=== PATIENT | female | born 1990 | race African-American/Black ===

== ENCOUNTER → 2016-05-07 | Outpatient (CLI) | payer BC, OTHER ==
[~2016-05-07] MED LIST: AMOXICILLIN875 MG PO; BENADRYL ALLERG25 MG PO; DENIES ANY MEDS; EPIPEN0.3 MG/0.3 IM; FLEXERIL PO; IBUPROFEN 600600 M1 PO; IBUPROFEN 800800 MG PO; KEFLEX500 MG PO; METHOCARBAMOL500 M2 PO; NOHOMEMEDICATIONS; NORCO 5-325 TA1 EACH PO; NORFLEX100 MG PO; PEPCID40 MG PO; PHENERGAN 25 MG25 M1 PO; PREDNISONE 20 M20 MG PO; PROTONIX40 MG PO; TRAMADOL 50 MG50 MG PO; ULTRAM 50MG TAB50 MG PO; ZOFRAN ODT4 MG
== END ==
LOC: RAD 13:49
DX: M41.84 Other forms of scoliosis, thoracic region (principal); M54.5 Low back pain

== ENCOUNTER → 2016-05-20 | Outpatient (CLI) | payer BC, OTHER | LOC: MRI 11:09 | DX: M51.27 Other intervertebral disc displacement, lumbosacral region (principal); M54.2 Cervicalgia ==

== ENCOUNTER 2016-08-03 11:39 | Emergency (ER) | payer BC, OTHER ==
[~2016-08-03] VITALS: Ht 175.3 cm; Wt 65.8 kg
[2016-08-03] MEDS ORDERED: NORFLEX100 MG PO (14:08)
[2016-08-03] MEDS ORDERED: MEDROL DOSPAK21 TAB PO (14:26)
[2016-08-03 14:30] VITALS: BP 107/69
== END 2016-08-03 14:08 | disposition home or self-care (01) ==
LOC: ER 11:39
DX: S39.012A Strain of muscle, fascia and tendon of lower back, initial encounter (principal); F17.210 Nicotine dependence, cigarettes, uncomplicated; F10.99 Alcohol use, unspecified with unspecified alcohol-induced disorder; Z87.442 Personal history of urinary calculi; Z88.6 Allergy status to analgesic agent; Z88.1 Allergy status to other antibiotic agents; V43.03XA Car driver injured in collision with pick-up truck in nontraffic accident, initial encounter; Y93.89 Activity, other specified; Y92.481 Parking lot as the place of occurrence of the external cause; Y99.8 Other external cause status

== ENCOUNTER 2019-02-06 15:35 | Emergency (ER) | payer OTHER ==
[~2019-02-06] VITALS: Ht 175.3 cm; Wt 65.8 kg
[~2019-02-06 15:35] MED LIST changes: +MEDROL DOSPAK21 TAB PO
[2019-02-06 17:16] LABS: HEMATOCRIT 37.7 % (37.0-47.0); HEMOGLOBIN 12.1 gm/dL (12.0-15.0); MCH 28.9 pg (26.0-34.0); MCHC 32.1 g/dL (28.0-37.0); RBC 4.2 mil/uL (4.20-5.00); RDW 13.8 % (10.5-14.5); WBC 6.7 thou/uL (4.0-11.0)
[2019-02-06] MEDS ORDERED: REGLAN 5 MG TAB5 MG PO (18:06)
[2019-02-06 18:18] VITALS: BP 102/54
== END 2019-02-06 18:18 | disposition home or self-care (01) ==
LOC: ER 15:35
PROVIDERS: Emergency Medicine
DX: O26.891 Other specified pregnancy related conditions, first trimester (principal); R10.31 Right lower quadrant pain; F17.210 Nicotine dependence, cigarettes, uncomplicated; Z3A.01 Less than 8 weeks gestation of pregnancy; Z87.442 Personal history of urinary calculi; Z88.6 Allergy status to analgesic agent; Z88.8 Allergy status to other drugs, medicaments and biological substances

== ENCOUNTER → 2019-03-22 | Emergency (ER) | payer OTHER ==
[~2019-03-22] MED LIST changes: +REGLAN 5 MG TAB5 MG PO
[2019-03-22 21:12] LABS: URINE BILIRUBIN NEGATIVE (Negative); URINE BLOOD NEGATIVE (Negative); URINE CLARITY CLEAR; URINE COLOR YELLOW; URINE GLUCOSE-RANDOM* NEGATIVE (Negative); URINE KETONES TRACE (Negative); URINE LEUKOCYTES-REFLEX TRACE (Negative); URINE NITRITE-REFLEX NEGATIVE (Negative); URINE PROTEIN (DIPSTICK) NEGATIVE (Negative); URINE SPECIFIC GRAVITY 1.025 (1.005-1.035); URINE UROBILINOGEN 0.2 E.U./dl (0.2-1.0)
[2019-03-22 22:42] VITALS: BP 105/61
== END ==
LOC: ER 20:52
PROVIDERS: Physician Assistant
DX: Z53.21 Procedure and treatment not carried out due to patient leaving prior to being seen by health care provider (principal)